=== PATIENT | female | born 1980 | race African-American/Black ===

== ENCOUNTER 2020-09-21 11:57 | Emergency (ER) | payer OTHER ==
[~2020-09-21] VITALS: Ht 160 cm; Wt 68.0 kg
[2020-09-21 11:57] VITALS: BP 147/85
[~2020-09-21 11:57] MED LIST: ORAVIG50 MG BC
[2020-09-21] MEDS ORDERED: TRIMETHOPRIM /P10 M1 OPHTHALMIC (14:04)
[2020-09-21] MEDS ORDERED: NORCO5 PO (14:04)
== END 2020-09-21 14:07 | disposition home or self-care (01) ==
LOC: ER 11:57
DX: S05.01XA Injury of conjunctiva and corneal abrasion without foreign body, right eye, initial encounter (principal); Z79.899 Other long term (current) drug therapy; W22.8XXA Striking against or struck by other objects, initial encounter; Y93.89 Activity, other specified; Y92.89 Other specified places as the place of occurrence of the external cause; Y99.8 Other external cause status